=== PATIENT | female | born 1985 | race Caucasian/White ===

== ENCOUNTER → 2017-03-31 | Day surgery (SDC) | payer OTHER ==
[~2017-03-31] VITALS: Ht 160 cm; Wt 133.1 kg
[~2017-03-31] MED LIST: CERTAGEN1 EACH PO; VITAMIN B122500 MCG PO
[2017-03-31 10:43] LABS: HCT 37.7 % (37.0-47.0); MCH 30.2 pg (25.0-31.0); MCHC 34.5 g/dL (32.0-36.0); MCV 87.7 fL (78.0-100.0); MPV 11.9 fL (6.0-9.5); RBC 4.3 M/uL (4.20-5.40); RDW 12.5 % (11.5-14.0); WBC 9.2 K/uL (4.0-10.5)
[2017-03-31 10:47] LABS: INR 0.9 (0.9-1.2); PROTHROMBIN TIME 11.8 SECONDS (11.7-14.0); PTT 26.5 SECONDS (23.2-31.4)
[2017-03-31 10:56] LABS: ALBUMIN 3.7 g/dL (3.5-5.0); BILIRUBIN - TOTAL 0.3 mg/dL (0.1-1.0); CREATININE 0.8 mg/dL (0.5-1.0); GLOBULIN (CALCULATION) 3.2 g/dL (2.2-4.2); POTASSIUM 4.2 mmol/L (3.5-5.1); TOTAL PROTEIN 6.9 g/dL (6.4-8.3)
[2017-03-31 11:12] LABS: FOLIC ACID (SERUM) 18.4 ng/mL (4.4-31.0)
[2017-03-31 11:18] LABS: TSH (THYROID STIM HORMONE) 3.34 uIU/mL (0.270-4.200); VITAMIN D (25-OH) 18.71 ng/mL (20.0-)
== END | disposition home or self-care (01) ==
LOC: FAS 09:19
PROVIDERS: Surgery
DX: K29.50 Unspecified chronic gastritis without bleeding (principal); E66.01 Morbid (severe) obesity due to excess calories; Z68.43 Body mass index [BMI] 50.0-59.9, adult; Z90.49 Acquired absence of other specified parts of digestive tract; Z88.1 Allergy status to other antibiotic agents; Z88.8 Allergy status to other drugs, medicaments and biological substances; Z80.1 Family history of malignant neoplasm of trachea, bronchus and lung; Z98.890 Other specified postprocedural states
CPT/HCPCS: 36415; 80053; 80061; 82306; 82607; 82728; 82746; 83036; 83540; 83550; 84425; 84443; 84703; 85610; 85730; 88305; J2704